=== PATIENT | male | born 1980 | race Caucasian/White ===

== ENCOUNTER 2022-06-13 17:34 | Emergency (ER) | payer MEDICARE, MEDICAID ==
[~2022-06-13] VITALS: Ht 182.9 cm; Wt 120.5 kg
[2022-06-13 19:40] LABS: CLARITY,URINE CLEAR (Clear); COLOR,URINE YELLOW (Yellow); GLUCOSE, URINE NEGATIVE (Neg); KETONES,URINE NEGATIVE (Neg); LEUKOCYTE ESTERASE ,URINE NEGATIVE (Neg); NITRITES, URINE NEGATIVE (Neg); OCCULT BLOOD,URINE NEGATIVE (Neg); PH,URINE 6.5 (4.8-8.0); PROTEIN,URINE NEGATIVE (Neg); UROBILINOGEN,URINE 0.2 E.U/dL (0.2-1.0)
[2022-06-13 19:45] LABS: UA COLLECTION TYPE CLN CATCH MIDSTREAM
[2022-06-13] MEDS ORDERED: CefTRIAXone 1000mg IM Kit (w/lidocaine diluent) IM STA (22:37)
[2022-06-13] MEDS ORDERED: azithromycin 250mg tablet PO ONE (22:40)
[2022-06-13 22:57] VITALS: BP 130/86
== END 2022-06-13 23:02 | disposition home or self-care (01) ==
LOC: ER 17:36
DX: N13.8 Other obstructive and reflux uropathy (principal); N23 Unspecified renal colic; F12.90 Cannabis use, unspecified, uncomplicated; Z88.8 Allergy status to other drugs, medicaments and biological substances; Z87.891 Personal history of nicotine dependence
CPT/HCPCS: 36415; 81003; 87491; 87591; 96372; 99283; J0696